=== PATIENT | female | born 1955 | race Caucasian/White ===

== ENCOUNTER → 2020-01-29 14:46 | Outpatient (CLI) | payer OTHER, SELFPAY ==
--- NOTE | 2020-01-29 14:51 | DI.ECHO.S_ITS ---
[facility] +---------+ : : [address] : : [place] : : : : [id number] : : : : Phone: [phone]+ Echocardiogram Report + + :Name: MOR MERRILL Study Date: 01/29/2020 Height: 71 in : :[facility] Weight: 240 lb : : Gender: Female BSA: 2.3 m2 : :: 1955 Age: 64 yrs BP: 147/94 mmHg: :Reason For Study: ATRIAL FIBRILLATION : :Ordering Physician: ANASTASIYA, : :ALEC Performed By: Ivy Rivera : :Referring: ALEC CAMPUZANO : + + Interpretation Summary The left ventricle is normal in size and wall thickness. The ejection fraction is estimated to be 55-60%. This is unchanged compared to the previous study. There are no focal wall motion abnormalities. The right ventricle is normal in size and function. The right ventricular systolic pressure is estimated to be at least 25 mmHg based on an estimated right atrial pressure of 3 mm Hg. Right atrial size is normal. The left atrium is moderately dilated. There is mild mitral regurgitation. There is no other significant valvular heart disease. The aortic root is normal size. Procedure: A two-dimensional transthoracic echocardiogram with color flow and Doppler was performed. The study quality was technically adequate. Comparison is made with the echocardiogram of 10/23/2014. The patient was in atrial fibrillation with heart rates between 69-87 bpm during the exam. Left Ventricle: The left ventricle is normal in size and wall thickness. The ejection fraction is estimated to be 55-60%. This is unchanged compared to the previous study. There are no focal wall motion abnormalities. Diastolic function could not be accurately assessed due to atrial fibrillation. Right Ventricle: The right ventricle is normal in size and function. Atria: The left atrium is moderately dilated. Right atrial size is normal. There is no Doppler evidence for an interatrial shunt. Mitral Valve: The mitral valve is normal in structure and function. There is mild mitral annular calcification. There is mild mitral regurgitation. Aortic Valve: The aortic valve is trileaflet. The aortic valve opens well. There is no aortic valve stenosis. No aortic regurgitation is present. Tricuspid Valve: The tricuspid valve is normal in structure and function. There is mild tricuspid regurgitation. The right ventricular systolic pressure is estimated to be at least 25 mmHg based on an estimated right atrial pressure of 3 mm Hg. Pulmonic Valve: The pulmonic valve is not well visualized. There is no pulmonic valvular regurgitation. There is no other significant valvular heart disease. Great Vessels: The aortic root is normal size. The ascending aorta is at the upper limits of normal in size. The IVC is of normal diameter and collapses less than 50% with a sniff. This suggests a right atrial pressure of 8 mm Hg. Pericardium/ Pleura There is no pericardial effusion. There is no pleural effusion. MMode/2D Measurements & Calculations LVIDd: 4.6 cm LVOT diam: 2.0 cm LVIDs: 3.0 cm Ao root diam: 3.2 cm FS: 34.9 % asc Aorta Diam: 3.4 cm EPSS: 0.41 cm Ao Arch Diam (Prox Trans): 3.0 cm IVSd: 1.1 cm LVPWd: 0.77 cm LV chaves. diameter/BSA (cm/m^2): 2.0 LV sys. diameter/BSA (cm/m^2): 1.3 LA A2 area: 28.3 cm2 RA long axis: 5.9 cm LA A4 area: 29.1 cm2 RA area: 20.4 cm2 LA length (vol): 6.2 cm RA vol: 60.0 ml LA vol: 112.2 ml RA : 26.3 ml/m2 LA vol index: 49.2 ml/m2 IVC diam: 2.0 cm RVD1 (basal): 3.7 cm TAPSE: 2.0 cm Doppler Measurements & Calculations Ao V2 max: 105.0 cm/sec LVOT Max Morgan: 103.5 cm/sec Ao V2 mean: 78.0 cm/sec LV V1 max P.3 mmHg Ao max P.4 mmHg LV V1 VTI: 19.8 cm Ao mean P.7 mmHg SOLO(I,D): 2.8 cm2 Ao V2 VTI: 21.8 cm SOLO(V,D): 3.1 cm2 sev ratio: 0.91 SOLO indexed to BSA (cm^2/m^2): 1.2 MV E max morgan: 97.4 cm/sec TR max morgan: 233.4 cm/sec MV A max morgan: 0.85 cm/sec TR max P.8 mmHg MV E/A: 115.1 PA V2 max: 57.0 cm/sec Med Peak E' Morgan: 10.2 cm/sec PA V2 mean: 36.5 cm/sec E/E' med: 9.5 PA mean P.64 mmHg Lat Peak E' Morgan: 10.0 cm/sec PA pr(Accel): 39.6 mmHg E/E' lat: 9.7 E/e' average: 9.6 MV dec time: 0.17 sec SV(LVOT): 61.8 ml Reading Physician:06:41 PM
== END ==
PROVIDERS: PCP Internal Medicine; Referring Provider Internal Medicine Cardiovascular Disease; Visit Provider Internal Medicine Cardiovascular Disease
DX: I08.1 Rheumatic disorders of both mitral and tricuspid valves (principal); I48.20 Chronic atrial fibrillation, unspecified
CPT/HCPCS: 93306

== ENCOUNTER → 2021-04-05 08:47 | Outpatient (CLI) | payer MEDICARE, OTHER, SELFPAY ==
--- NOTE | 2021-04-05 08:55 | DI.MG.S_ITS ---
BILATERAL DIGITAL SCREENING MAMMOGRAM 3D/2D WITH CAD: 04/05/2021 CLINICAL: Routine screening. Family history of breast cancer. Comparison is made to exams dated: 11/15/2019 mammogram - [facility], 05/19/2018 mammogram, and 03/25/2017 mammogram - [facility]. The tissue of both breasts is predominantly fatty. Current study was also evaluated with a Computer Aided Detection (CAD) system. There is a biopsy clip in the left breast. No significant masses, calcifications, or other findings are seen in either breast. There has been no significant interval change. IMPRESSION: NEGATIVE There is no mammographic evidence of malignancy. A 1 year screening mammogram is recommended. This exam was interpreted at Station ID: [id number]. NOTE: For mammograms, a report in lay terms will be sent to the patient. Approximately 15% of breast malignancies will not be visualized mammographically. In the management of a palpable breast mass, a negative mammogram must not discourage biopsy of a clinically suspicious lesion. Electronically Signed By: Errol Palmer M.D., jr/claudio:04/07/2021 08:56:00 letter sent: Normal Exam ACR BI-RADS Category 1: Negative 3341F
--- NOTE | 2021-04-05 08:56 | DI.RAD.S_ITS ---
PROCEDURE: XR THORACIC SPINE 3V INDICATIONS: LEG WEAKNESS AND RADICULOPATHY TECHNIQUE: 3 views of the thoracic spine were acquired. COMPARISON: [facility], , SPINE CERVICAL 1VW, 05/13/2012, 12:31. FINDINGS: Bones: No fractures or dislocations. No suspicious bony lesions. 12 pairs of ribs are noted, and appear intact where visualized. Lower cervical spine fixation hardware is seen. S-shaped scoliotic curvature is seen. Accentuated thoracic kyphosis is seen. Age-appropriate bony degenerative changes are seen. Soft tissues: No paravertebral stripe thickening. IMPRESSION: Degenerative changes can be seen throughout, with S shaped scoliotic curvature and accentuated thoracic kyphosis. No focal thoracic spine abnormality is seen to explain the patient's presenting history. If it would be helpful for clinical management decision making, please consider a dedicated thoracic spine MRI for further evaluation (assuming that there is no contraindication). Lower cervical spine fixation hardware is partially seen. Dictated by: Arnold Lopez M.D. on 04/05/2021 at 8:49 Approved by: Arnold Lopez M.D. on 04/05/2021 at 8:50
== END ==
PROVIDERS: PCP Physician Assistant; Referring Provider Physician Assistant; Visit Provider Physician Assistant
DX: Z12.31 Encounter for screening mammogram for malignant neoplasm of breast (principal); Z80.3 Family history of malignant neoplasm of breast; M47.814 Spondylosis without myelopathy or radiculopathy, thoracic region; M40.294 Other kyphosis, thoracic region; M54.10 Radiculopathy, site unspecified; R53.1 Weakness
CPT/HCPCS: 72072; 77063; 77067

== ENCOUNTER → 2022-05-14 10:03 | Outpatient (CLI) | payer MEDICARE, OTHER, SELFPAY ==
--- NOTE | 2022-05-14 | DI.NM.S_ITS ---
PROCEDURE: NM SHEN PERF SPECT REST & STR Rest and exercise myocardial perfusion SPECT with gated imaging and ejection fraction RADIOPHARMACEUTICAL: 12.7 mCi Tc-99m sestamibi IV at rest and 25.6 mCi Tc-99m sestamibi IV at peak exercise. A [id number] was performed. INDICATIONS: Permanent atrial fibrillation TECHNIQUE: Radiopharmaceutical was injected at peak stress test, and also at rest. SPECT images were obtained. SPECT myocardial perfusion images were displayed in short axis, horizontal long axis, and vertical long axis views. Gated images were reviewed using McPhyQUANT software. COMPARISON: None. CARDIAC STRESS: A standard Yimi treadmill exercise tolerance test was performed by the patient under the supervision of an attending staff. The patient exercised for 5 minutes and 20 seconds; 7.0 METS; functional aerobic impairment (NARENDRA) is +25%. Hemodynamic data: There is normal blood pressure and heart rate response to exercise stress. Maximum blood pressure 175/55. Patient achieved 123% of maximum predicted heart rate at peak exercise. Symptoms: Patient denied chest pain during exercise. EKG: Rest ECG atrial fibrillation 67 bpm, subtle ST abnormality inferior and anterolaterally. Exercise ECG atrial fibrillation with rapid ventricular response and episodes of heart rates > 200 bpm, 1 to [address] segment depressions inferior and anterolateral leads. FINDINGS: Raw data: There is good myocardial labeling by radiotracer. No significant motion artifacts. Htfh-zv-fsejy ratio is 0.41 (normal is less than 0.38 for sestamibi tracer, and less than 0.50 for thallium tracer). Left ventricle function: Gated images demonstrate normal left ventricle wall thickening. No segmental wall motion abnormality. No transient ischemic dilation; TID is 0.98 (normal less than 1.3). The left ventricle resting end-diastolic volume is 84 mL. Left ventricle stress ejection fraction is 70%; normal values are above 45%. Myocardial perfusion: There is normal distribution of activity in the left and right ventricular myocardium. No fixed or reversible perfusion defects. IMPRESSION: Likely low risk study. No evidence of exercise-induced ischemia on SPECT imaging. Baseline ECG with subtle inferior and anterolateral ST segment changes that worsened to horizontal ST segment depressions 1.5 to 2 mm however patient in atrial fibrillation with intermittent RVR at rates out of proportion to level of exercise. Normal blood pressure response to exercise. Reduced exercise capacity. Normal LV function. Dictated by: Mayte Billings D.O. on 05/14/2022 at 17:00 Approved by: Mayte Billings D.O. on 05/14/2022 at 17:08
== END ==
PROVIDERS: PCP Family Medicine; Referring Provider Internal Medicine Cardiovascular Disease; Visit Provider Internal Medicine Cardiovascular Disease
DX: I48.21 Permanent atrial fibrillation (principal); Z82.49 Family history of ischemic heart disease and other diseases of the circulatory system
CPT/HCPCS: 78452; 93017; A9502

== ENCOUNTER → 2022-07-04 09:54 | Outpatient (CLI) | payer MEDICARE, OTHER, SELFPAY ==
--- NOTE | 2022-07-04 | DI.MG.S_ITS ---
BILATERAL DIGITAL SCREENING MAMMOGRAM 3D/2D WITH CAD: 07/04/2022 CLINICAL: Routine screening. Family history of breast cancer. Comparison is made to exams dated: 04/05/2021 mammogram - [facility], 11/15/2019 mammogram - [facility], and 05/19/2018 mammogram - [facility]. There are scattered areas of fibroglandular density in both breasts (category b / 25%-50% glandular tissue). Current study was also evaluated with a Computer Aided Detection (CAD) system. There is a biopsy clip in the left breast. No significant masses, calcifications, or other findings are seen in either breast. There has been no significant interval change. IMPRESSION: NEGATIVE There is no mammographic evidence of malignancy. A 1 year screening mammogram is recommended. Based on the Tyrer Cuzick model (a risk assessment model) the patient's lifetime risk is 10.4% and her 10 year risk is 5.3%. According to the ACR, ACS, and NCCN guidelines, an annual breast MRI exam along with mammogram is recommended if the patient's lifetime risk is 20% or greater. This exam was interpreted at Station ID: [id number]. NOTE: For mammograms, a report in lay terms will be sent to the patient. Approximately 15% of breast malignancies will not be visualized mammographically. In the management of a palpable breast mass, a negative mammogram must not discourage biopsy of a clinically suspicious lesion. Electronically Signed By: Eliot hughes/claudio:07/06/2022 08:38:09 letter sent: Normal Exam ACR BI-RADS Category 1: Negative 3341F
== END ==
PROVIDERS: PCP Family Medicine; Referring Provider Family Medicine; Visit Provider Family Medicine
DX: Z12.31 Encounter for screening mammogram for malignant neoplasm of breast (principal); Z80.3 Family history of malignant neoplasm of breast
CPT/HCPCS: 77063; 77067

== ENCOUNTER → 2022-09-10 12:14 | Outpatient (CLI) | payer MEDICARE, OTHER, SELFPAY ==
--- NOTE | 2022-09-10 12:57 | DI.DEXA.S_ITS ---
Bone Density Report Name: MOR MERRILL Age: 67 Sex: Female Ethnicity: White Date of : 1955 Indication: postmenopausal; screening for osteoporosis; Referring Provider: CHIVO VINSON Study: Bone densitometry was performed. Exam Date: September 10, 2022 Accession number: [id number] Bone Density: Region BMD T-score Z-score Classification AP Spine(L1, L2, L4) 1.245 1.9 3.8 Normal Femoral Neck (Right) 0.704 -1.3 0.3 Osteopenia Total Hip (Right) 0.768 -1.4 -0.1 Osteopenia Total Forearm (Left) 0.511 -1.3 0.5 Osteopenia 1/3 Forearm (Left) 0.621 -1.2 0.6 Osteopenia UD Forearm (Left) 0.384 -1.0 0.3 Normal World Health Organization criteria for BMD impression classify patients as: Normal (T-score at or above -1.0), Osteopenia (T-score between -1.0 and -2.5), or Osteoporosis (T-score at or below -2.5). 10-year Fracture Risk(1): Major Osteoporotic Fracture 8.7% Hip Fracture 0.9% Reported Risk Factors: [place] (), Neck BMD=0.704, BMI=30.0 (1) FRAX(R) Version 3.08. Fracture probability calculated for an untreated patient. Fracture probability may be lower if the patient has received treatment. Impression: The patient has low bone mass, based on the Right Total Hip T-score. The patient has an estimated ten-year risk of hip fracture of 0.9% and an estimated ten-year risk of major fracture of 8.7%, based on the WHO FRAX algorithm. Discussion: BONE DENSITY IS LOW AT ONE OR MORE SKELETAL SITES. This patient's lowest T-score is low at one or more skeletal sites. It meets the World Health Organization's (WHO) criteria for ?low bone mass? (T-score between -1.0 and -2.5). The patient's 10-year risk of fracture as calculated by FRAX is less than the threshold where pharmacological therapy is recommended by the National Osteoporosis Foundation (NOF). However, all treatment decisions require clinical judgment and consideration of individual patient factors, including patient preferences, comorbidities, previous drug use, risk factors not captured in the FRAX model (e.g., frailty, falls, vitamin D deficiency, increased bone turnover, interval significant decline in bone density) and possible under or overestimation of fracture risk by FRAX. The patient should follow a healthful lifestyle (good nutrition with adequate calcium and vitamin D, and appropriate weight-bearing exercise). Follow-Up: Consider repeating this study in 2 to 3 years to reassess this patient's status, or sooner if there is some new clinical indication. Reported by: DONNA MONIUQE M.D. on 09/10/2022 5:15:00 PM.
== END ==
PROVIDERS: PCP Nurse Practitioner Family; Referring Provider Nurse Practitioner Family; Visit Provider Nurse Practitioner Family
DX: M85.851 Other specified disorders of bone density and structure, right thigh (principal); Z13.820 Encounter for screening for osteoporosis; Z78.0 Asymptomatic menopausal state
CPT/HCPCS: 77080; 77081